=== PATIENT | female | born 1965 | race Caucasian/White ===

== ENCOUNTER → 2016-09-21 | Day surgery (SDC) | payer OTHER ==
[~2016-09-21] MED LIST: ALBUTEROL; BLAC200C PO; ERYT500T17 PO; ESCI10TA10 PO; FENTANYL PF 100 MCG/2 ML VIAL. IV PRN; HYDROMORPHONE 2 MG/ML VIAL. IV PRN; IV RINGERS,LACTATED 1000ML 1,000 ML IV SCH; LIDOCAINE 1% 1 ML SYRINGE. ID PRN; MORPHINE SULFATE 2 MG/ML DISP.SYRIN. IV PRN; ONDANSETRON PF 4 MG/2 ML VIAL. IV PRN; PROAIR HFA8.5 GM INH; PROCHLORPERAZINE 10 MG/2 ML VIAL. IV PRN; PROPOFOL 20 ML IV ONE; THEO400T2 PO
[2016-09-21 08:45] VITALS: BP 104/74
--- NOTE | 2016-09-21 11:19 | CONS ---
DATE OF CONSULTATION: 09/21/2016 HISTORY OF PRESENT ILLNESS: A 51-year-old female whose past medical history is significant for cholecystectomy, appendectomy, hysterectomy, tonsillectomy and lysis of adhesions, is seen with right lower quadrant abdominal pain. Previous evaluation including CT scan, upper endoscopy has been unrevealing except for delayed gastric emptying for which she has been placed on prokinetic therapy with her erythromycin. She has persistent right lower quadrant pain. Prior colonoscopy over a decade ago was unrevealing. There is no family history of colon polyps or colon cancer, no malignancy or inflammatory bowel disease. No extraintestinal manifestations of IBD are present with continued symptoms to request additional evaluation. PAST MEDICAL HISTORY: Gastroparesis, asthma. PAST SURGICAL HISTORY: Status post lysis of adhesions, tonsillectomy, hysterectomy, appendectomy and cholecystectomy. FAMILY AND SOCIAL HISTORY: She is a smoker and social drinker. REVIEW OF SYSTEMS: Per records. PHYSICAL EXAMINATION: GENERAL: Reveals a well-nourished, well-developed female who is alert, conversant, in no acute distress. VITAL SIGNS: Temperature is 98, pulse 79, respirations 18. HEENT: Normocephalic and atraumatic head. Pupils and extraocular muscles not tested. Sclerae anicteric. NECK: Supple. LUNGS: Clear. CARDIOVASCULAR: Reveals S1, S2 without S3, S4 or appreciable murmur. ABDOMEN: Reveals multiple surgical incisions from previous cholecystectomy, appendectomy and hysterectomy. Normoactive bowel sounds without appreciable hepatosplenomegaly, right lower quadrant tenderness. EXTREMITIES: Reveals no cyanosis, clubbing or edema. IMPRESSION: Right lower quadrant abdominal pain with a history of adhesions. Differential includes inflammatory bowel disease, colon polyps, colon cancer, partial small-bowel obstruction; therefore, I recommend colonoscopy. If this is unrevealing, then a small bowel series may be pursued. I would like to thank Kori Cindy for allowing us to consult and participate in this patient's care. TERE BARKER MD DR: HERMES/clifford JOB#: [id number] / [id number]
== END | disposition home or self-care (01) ==
LOC: ENDOS 06:24
PROVIDERS: ATTEND Internal Medicine Gastroenterology
DX: K64.0 First degree hemorrhoids (principal); J44.9 Chronic obstructive pulmonary disease, unspecified; J45.909 Unspecified asthma, uncomplicated; F32.9 Major depressive disorder, single episode, unspecified; Z90.710 Acquired absence of both cervix and uterus; Z90.49 Acquired absence of other specified parts of digestive tract; Z86.14 Personal history of Methicillin resistant Staphylococcus aureus infection
CPT/HCPCS: 45378; J2704

== ENCOUNTER → 2017-12-03 | Outpatient (CLI) | payer OTHER ==
[2017-12-03 14:10] LABS: ADD MAN DIFF? NO
[2017-12-03 14:13] LABS: BASO # 0.1 x10^3/uL (0.0-0.2); BASO % 1 % (0-3); EOS # 0.1 x10^3/uL (0.0-0.7); EOS % 1 % (0-3); HEMOGLOBIN 14.8 g/dL (12.0-15.5); LYMPH # 2.4 x10^3/uL (1.0-4.8); LYMPH % 28 % (24-48); MEAN CORPUSCULAR HEMOGLOBIN 30 pg (25-35); MEAN CORPUSCULAR HGB CONC 34 g/dL (31-37); MEAN CORPUSCULAR VOLUME 87 fL (79-100); MONO # 0.4 x10^3/uL (0.0-1.1); MONO % 5 % (0-9); NEUT # 5.4 x10^3uL (1.8-7.7); NEUT % 64 % (31-73); PLATELET COUNT 264 x10^3/uL (140-400); RED BLOOD COUNT 4.96 x10^6/uL (3.50-5.40); RED CELL DISTRIBUTION WIDTH 14.7 % (11.5-14.5); WHITE BLOOD COUNT 8.4 x10^3/uL (4.0-11.0)
[2017-12-03 14:23] LABS: ALBUMIN 3.9 g/dL (3.4-5.0); ANION GAP 7 (6-14); BLOOD UREA NITROGEN 16 mg/dL (7-20); CALCIUM 9.7 mg/dL (8.5-10.1); CARBON DIOXIDE 28 mmol/L (21-32); CHLORIDE 106 mmol/L (98-107); GFR 58.5; GLUCOSE 93 mg/dL (70-99); SODIUM 141 mmol/L (136-145)
== END | disposition home or self-care (01) ==
LOC: SURGPAT 13:02
DX: Z01.812 Encounter for preprocedural laboratory examination (principal)
CPT/HCPCS: 36415; 80048; 82040; 85025

== ENCOUNTER 2017-12-10 08:48 | Day surgery (SDC) | payer OTHER ==
[~2017-12-10 08:48] MED LIST changes: -ALBUTEROL; -BLAC200C PO; -ERYT500T17 PO; -ESCI10TA10 PO; -FENTANYL PF 100 MCG/2 ML VIAL. IV PRN; -HYDROMORPHONE 2 MG/ML VIAL. IV PRN; -IV RINGERS,LACTATED 1000ML 1,000 ML IV SCH; -LIDOCAINE 1% 1 ML SYRINGE. ID PRN; +LIDOCAINE 1% PF 2 ML VIAL. ID; -MORPHINE SULFATE 2 MG/ML DISP.SYRIN. IV PRN; -ONDANSETRON PF 4 MG/2 ML VIAL. IV PRN; -PROAIR HFA8.5 GM INH; -PROCHLORPERAZINE 10 MG/2 ML VIAL. IV PRN; -PROPOFOL 20 ML IV ONE; -THEO400T2 PO
[2017-12-10] MEDS ORDERED: ROCURONIUM 100 MG/10 ML VIAL. (08:54)
[2017-12-10] MEDS ORDERED: MIDAZOLAM HCL/PF 2 MG/2 ML VIAL. (08:55)
[2017-12-10] MEDS ORDERED: SEVOFLURANE 31 TO 60 MINUTES. IH ×2 (08:55→11:08)
[2017-12-10] MEDS ORDERED: DEXAMETHASONE SOD PHOS 20 MG/5 ML VIAL. (08:55)
[2017-12-10] MEDS ORDERED: KETOROLAC 30 MG/ML INJ FOR OR. INJ (08:55)
[2017-12-10] MEDS ORDERED: PROPOFOL 20 ML IV (08:55)
[2017-12-10] MEDS ORDERED: SEVOFLURANE 61 TO 120 MINUTES. IH (08:55)
[2017-12-10] MEDS ORDERED: fentaNYL PF VIAL 100 MCG/2 ML VIAL (08:55)
[2017-12-10] MEDS ORDERED: ONDANSETRON PF 4 MG/2 ML VIAL. (08:55)
[2017-12-10] MEDS: IV RINGERS,LACTATED 1000ML 1,000 ML IV (09:18)
[2017-12-10] MEDS: BUPIVAC MPF-EPI 0.5%-1:200000 30 ML VIAL. (10:24)
[2017-12-10] MEDS ORDERED: NEOSTIGMINE METHYLSULFATE 5 MG/5 ML SYRINGE. (10:39)
[2017-12-10] MEDS ORDERED: GLYCOPYRROLATE 1 MG/5 ML VIAL. (10:40)
[2017-12-10] MEDS: MORPHINE SULFATE 4 MG/ML DISP.SYRIN. IV ×3 (11:11→11:32)
[2017-12-10] MEDS: PROCHLORPERAZINE 10 MG/2 ML VIAL. IV (11:12)
[2017-12-10] MEDS ORDERED: fentaNYL PF VIAL 100 MCG/2 ML VIAL IV ×2 (11:15)
[2017-12-10] MEDS ORDERED: oxyCODONE/APAP 5/325 1 TAB TABLET (11:31)
[2017-12-10] MEDS: oxyCODONE/APAP 5/325 1 TAB TABLET PO (11:34)
[2017-12-10] MEDS ORDERED: ceFAZolin 2GM PREMIX 2 GM/50 ML BAG IV (12:00)
== END 2017-12-10 12:11 | disposition home or self-care (01) ==
LOC: SURG 08:48
DX: K43.2 Incisional hernia without obstruction or gangrene (principal); J44.9 Chronic obstructive pulmonary disease, unspecified; K21.9 Gastro-esophageal reflux disease without esophagitis; Z93.0 Tracheostomy status; M19.90 Unspecified osteoarthritis, unspecified site; M17.10 Unilateral primary osteoarthritis, unspecified knee; M19.019 Primary osteoarthritis, unspecified shoulder; F32.9 Major depressive disorder, single episode, unspecified; Z90.49 Acquired absence of other specified parts of digestive tract; Z98.890 Other specified postprocedural states; Z90.710 Acquired absence of both cervix and uterus; Z90.721 Acquired absence of ovaries, unilateral; Z98.51 Tubal ligation status; Z86.14 Personal history of Methicillin resistant Staphylococcus aureus infection; Z87.891 Personal history of nicotine dependence
CPT/HCPCS: 49560; A7015; J0690; J0780; J1100; J1885; J2250; J2270; J2405; J2704; J2710; J3010; J3490